=== PATIENT | male | born 1980 | race Caucasian/White ===

== ENCOUNTER 2018-07-08 07:32 | Inpatient (IN) ==
[2018-07-08] MEDS ORDERED: Ondansetron 4 MG/2 ML VIAL IVP ONE ×2 (08:08→16:01)
[2018-07-08] MEDS ORDERED: Ketorolac 15 MG/ML VIAL IVP ONE (08:08)
[2018-07-08] MEDS ORDERED: *HR* FentaNYL (PF) 100 MCG/2 ML VIAL IVP ONE (08:10)
[2018-07-08 08:30] LABS: Basophils % 0.4 %; Eosinophils % 0.4 %; Hematocrit 47.6 % (37.5-50.1); Hemoglobin 16.5 g/dL (12.9-16.9); Immature Granulocytes % 0.2 % (0-4); Lymphocytes # 2.2 K/mcL (0.6-4.6); Lymphocytes % 21.3 %; Mean Corpuscular HGB Conc 34.7 g/dL (31.6-35.5); Mean Corpuscular Hemoglobin 30.7 pg (28.0-33.3); Mean Corpuscular Volume 88.6 fL (83.0-100.0); Mean Platelet Volume 9.6 fL (9.4-12.4); Monocytes # 0.9 K/mcL (0.0-1.3); Monocytes % 8.3 %; Neutrophils # 7.1 K/mcL (1.6-8.9); Platelet Count 212 K/mcL (140-400); Red Blood Count 5.37 M/mcL (4.19-5.50); Red Cell Distribution Width 11.7 % (11.5-14.5); Segmented Neutrophils % 69.4 %
[2018-07-08 08:39] LABS: Bilirubin,Urine Negative (Negative); Blood,Urine Negative (Negative); Color,Urine Yellow (Yellow); Glucose,Urine (UA) Normal (Normal); Ketones,Urine Negative (Negative); Leukocyte Esterase,Urine Negative (Negative); Nitrite,Urine Negative (Negative); Protein,Urine Negative (Neg-Trace); Specific Gravity,Urine 1.014 (1.010-1.025); Urobilinogen,Urine Normal (Normal)
[2018-07-08 08:40] LABS: Clarity,Urine Clear (Clear)
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
[2018-07-08 08:48] LABS: Alanine Aminotransferase 15 Units/L (7-52); Albumin 4.2 g/dL (3.5-5.7); Albumin/Globulin Ratio 1.9 (1.1-2.2); Alkaline Phosphatase 76 Units/L (34-104); Aspartate Amino Transferase 17 Units/L (13-39); BUN/Creatinine Ratio 13 (6-26); Bilirubin,Direct 0.1 mg/dL (0.0-0.2); Bilirubin,Indirect 0.3 mg/dL (0.0-1.2); Bilirubin,Total 0.4 mg/dL (0.3-1.0); Blood Urea Nitrogen 10 mg/dL (6-20); Calcium 9.2 mg/dL (8.6-10.3); Carbon Dioxide 29 mEq/L (23-29); Chloride 107 mEq/L (98-107); Globulin 2.2 g/dL (2.4-3.5); Glucose 104 mg/dL (70-105); Lipase 18 Units/L (11-82); Osmolality,Calculated 285 (280-300); Potassium 3.9 mEq/L (3.5-5.1); Sodium 138 mEq/L (136-145); Total Protein 6.4 g/dL (6.4-8.9); eGFR For Non-African Americans > 60 (> 60)
[2018-07-08] MEDS ORDERED: Isovue-370 500 ML BOTTLE IVP ONE (09:12)
--- NOTE | 2018-07-08 10:57 | Electrocardiograph Report ---
[facility] Test Date: 2018-07-08 Pat Name: Leonel Vázquez Department: [id number] Room: Gender: M Heel Pricker: : 1980 Requested By: Alonzo Perez Order Number: [id number] Reading MD: Jose Recio Measurements Intervals Dow Rate: 83 P: 76 WA: 114 QRS: 81 QRSD: 94 T: 42 QT: 355 QTc: 418 Interpretive Statements Sinus rhythm Borderline short WA interval Electronically Signed On 07-08-2018 10:56:17 EST by Jose Recio
[2018-07-08] MEDS ORDERED: *HR* HYDROmorphone (PF) 1 MG/ML SYRINGE IVP ONE (11:11)
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
[2018-07-08] MEDS ORDERED: *HR* Promethazine 25 MG/ML VIAL IVP PRN ×2 (13:06→16:01)
[2018-07-08] MEDS ORDERED: Ondansetron 4 MG/2 ML VIAL IVP PRN (13:06)
[2018-07-08] MEDS ORDERED: *HR* Metoprolol 5 MG/5 ML VIAL IVP PRN ×3 (13:06→18:46)
[2018-07-08] MEDS ORDERED: Naloxone 0.4 MG/ML INJ IVP PRN ×2 (13:06→18:46)
[2018-07-08] MEDS ORDERED: *HR* OxyCODONE Oral Soln 5 MG/5 ML UD.LIQ PO PRN ×3 (13:06→18:46)
[2018-07-08] MEDS ORDERED: 0.9 % Sodium Chloride 1,000 ML IVC SCH (13:06)
[2018-07-08] MEDS: Acetaminophen IV 1,000 MG/100 ML INFUS..BTL IVPB SCH ×2 (13:54→23:03)
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
[2018-07-08] MEDS ORDERED: *HR* FentaNYL (PF) 100 MCG/2 ML VIAL ONE ×2 (15:31→16:40)
[2018-07-08] MEDS ORDERED: *HR* Propofol 200 MG/20 ML VIAL IVP ONE (15:31)
[2018-07-08] MEDS ORDERED: *HR* Midazolam HCl 2 MG/2 ML VIAL ONE (15:31)
[2018-07-08] MEDS ORDERED: Lidocaine -MPF 2% 2 ML VIAL ONE (15:34)
[2018-07-08] MEDS ORDERED: *HR* OxyCODONE Immed Rel 5 MG TABLET PO PRN (16:01)
[2018-07-08] MEDS ORDERED: Albuterol 2.5 MG/3 ML NEBULIZER IH ONE (16:01)
[2018-07-08] MEDS ORDERED: Clindamycin 900 MG/50 ML 900 MG/50 ML IV.SOLN IVPB ONE (16:26)
[2018-07-08] MEDS ORDERED: Ondansetron 4 MG/2 ML VIAL ONE (17:08)
[2018-07-08] MEDS ORDERED: Dexamethasone 4 MG/ML VIAL ONE (17:08)
[2018-07-08] MEDS ORDERED: SUGAMMADEX SODIUM 500 MG/5 ML VIAL IV ONE (17:18)
--- NOTE | 2018-07-08 17:28 | Operative Note ---
Date of procedure: 07/08/18 Pre-op diagnosis: Jejunum to jejunum intussusception Post-op diagnosis: same Procedure: Exploratory laparotomy, incidental appendectomy Complications: none immediate Anesthesia: GETA Surgeon: Esme Seymour Was there an development assistant present: No Power Hair Clipper Other: Rosie Landis Estimated blood loss (cc): 5 Specimen: appendix Condition: stable Disposition: PACU Procedure in Detail: Patient was brought into the operating suite and placed supine on the operating table. Sign in was performed and everyone was in agreement. Anesthesia was induced and patient was endotracheally intubated by anesthesia without incident. Of NG tube was placed by anesthesia. The abdomen was shaved. The abdomen was prepped and draped in usual sterile fashion. Timeout was performed again everyone was in agreement. An upper midline incision through the skin and the subcutaneous tissues made with a 15 blade. We dissected through the subcutaneous tissue to the anterior abdominal wall linea alba fascia with the Bovie. [place]'s are placed on either side of the fascia for retraction and the abdomen was entered with the Bovie. The fascial incision was elongated. Small bowel was eviscerated through the abdominal wall and the small bowel was run twice from the ligament of Treitz down to the terminal ileum. The small bowel intussusception had artery resolved. There was no palpable lesions within the small bowel. There was no mesenteric adenopathy that was palpable. There were no small bowel to intra-abdominal wall adhesions. There was no creeping fat indicative of Crohn's. A Karolina was placed on the appendix. A hemostat was used to dissect underneath the appendix through the mesoappendix. The appendix at the base of the cecum was transected with a linear JERSON 75 mm stapler blue load. The mesoappendix was taken down with the Bovie. A [id number] 3-0 silk stitch was used to control the appendiceal artery. All small bowel was returned to the abdominal cavity. The fascia was reapproximated with 2 separate #1 non-looped PDS running stitches meeting in the middle. Subcutaneous tissue is irrigated with sterile saline. Subcutaneous tissue was reapproximated with 3-0 Vicryl stitches and skin was closed with enriqueta. 4 x 4 gauze and Medipore tape were applied as a dressing. Patient tolerated the procedure well. All lap and instrument counts are correct at the end of the case. Patient was awoken by anesthesia and extubated in the OR without incident. He was taken to PACU in stable condition.
[2018-07-08] MEDS ORDERED: *HR* Heparin 5,000 UNIT/ML VIAL SQ SCH (18:00)
[2018-07-08] MEDS: *HR* HYDROmorphone (PF) 1 MG/ML SYRINGE IVP PRN ×2 (18:00→18:20)
--- NOTE | 2018-07-08 18:32 | Anesthesia Evaluation Post Op ---
Date of Encounter: 07/08/18 Time of Encounter: 18:20 - Vital Signs Vital Signs: Vital Signs/O2 Sat/Glucose, Most Current Temp Pulse Resp BP Pulse Ox 07/08/18 18:22 98.2 F 59 16 141/90 94 07/08/18 18:12 58 16 139/79 94 07/08/18 18:02 60 20 140/60 98 07/08/18 17:52 98.7 F 61 20 151/85 98 - Lungs Lungs: Clear Ascult./Percussion - Airway Airway: Non-obstructed - Cardiovascular Regular Rate - Mental Status Mental Status: Alert & Oriented, Answers Appropriately, Uncooperative - Pain Pain Scale: 2 Pain Scale used: HopkinsMoisés (Faces) (2) - Nausea Vomiting Nausea Vomiting: Not Present - Hydration Hydration: Tolerates oral liquids - Discharge PostOp Status: Transfer Patient to floor Anes Supervising Prov Stmt: Pt seen//evaluated, VSS and has met criteria for discharge to floor. - MD Gary
[2018-07-08] MEDS: Ondansetron 4 MG/2 ML VIAL IVP PRN (19:32)
[2018-07-08] MEDS: 0.9 % Sodium Chloride 1,000 ML IVC SCH (21:15)
[2018-07-09] MEDS: OXYCODONE Oral CONC 10 MG/0.5 ML ORAL.SYG PO PRN ×4 (00:17→12:17)
[2018-07-09] MEDS: 0.9 % Sodium Chloride 1,000 ML IVC SCH ×3 (04:30→14:02)
[2018-07-09] MEDS: Acetaminophen IV 1,000 MG/100 ML INFUS..BTL IVPB SCH ×3 (05:11→16:20)
[2018-07-09 06:42] LABS: Basophils % 0.1 %; Eosinophils % 0.1 %; Hematocrit 46.5 % (37.5-50.1); Hemoglobin 16.1 g/dL (12.9-16.9); Immature Granulocytes % 0.4 % (0-4); Lymphocytes # 1.8 K/mcL (0.6-4.6); Lymphocytes % 8.7 %; Mean Corpuscular HGB Conc 34.6 g/dL (31.6-35.5); Mean Corpuscular Volume 89.6 fL (83.0-100.0); Mean Platelet Volume 9.6 fL (9.4-12.4); Monocytes # 1.4 K/mcL (0.0-1.3); Monocytes % 6.7 %; Platelet Count 211 K/mcL (140-400); Red Blood Count 5.19 M/mcL (4.19-5.50); Red Cell Distribution Width 11.5 % (11.5-14.5)
[2018-07-09 06:50] LABS: Neutrophils # 17.1 K/mcL (1.6-8.9)
[2018-07-09 07:01] LABS: BUN/Creatinine Ratio 12 (6-26); Blood Urea Nitrogen 8 mg/dL (6-20); Calcium 8.7 mg/dL (8.6-10.3); Carbon Dioxide 24 mEq/L (23-29); Chloride 104 mEq/L (98-107); Glucose 98 mg/dL (70-105); Magnesium 1.5 mg/dL (1.6-2.6); Osmolality,Calculated 282 (280-300); Potassium 3.8 mEq/L (3.5-5.1); Sodium 137 mEq/L (136-145); eGFR For Non-African Americans > 60 (> 60)
[2018-07-09] MEDS: Pantoprazole 40 MG VIAL IVP SCH (08:32)
[2018-07-09] MEDS ORDERED: Pantoprazole 40 MG VIAL IVP SCH (09:00)
[2018-07-09] MEDS ORDERED: Venlafaxine XR (24 HR) 37.5 MG CAP.ER.24H PO SCH (10:45)
[2018-07-09] MEDS: Ondansetron 4 MG/2 ML VIAL IVP PRN (12:00)
[2018-07-09] MEDS ORDERED: ALPRAZolam 1 MG TABLET PO PRN (13:02)
[2018-07-09] MEDS ORDERED: *HR* OxyCODONE Oral Soln 5 MG/5 ML UD.LIQ PO PRN (13:04)
--- NOTE | 2018-07-09 13:07 | General Surgery Progress Note ---
Date of Encounter: 07/09/18 Time of Encounter: 13:05 - Assessment and Plan (1) Small bowel intussusception Current Visit: Yes Status: Acute resolved on its own (2) Anxiety Current Visit: Yes Status: Chronic continue home medication (3) Abdominal pain Current Visit: Yes Status: Chronic now is postoperative pain percocet, scheduled toradol lidoderm patch Qualifiers: Abdominal location: generalized Qualified Code(s): R10.84 - Generalized abdominal pain (4) Nausea and vomiting Current Visit: Yes Status: Resolved Qualifiers: Vomiting type: unspecified Vomiting Intractability: non-intractable Qualified Code(s): R11.2 - Nausea with vomiting, unspecified (5) Leukocytosis Current Visit: Yes Status: Acute likely secondary to surgery Qualifiers: Leukocytosis type: unspecified Qualified Code(s): D72.829 - Elevated white blood cell count, unspecified Subjective Patient reports: no new complaints, still having pain, tolerating liquids well, flatus, no bowel movement, afebrile Objective Vital Signs - Last 8 Hours Temp Pulse Resp BP Pulse Ox 07/09/18 11:00 98.2 F 89 16 132/78 95 07/09/18 07:20 98.2 F 62 16 126/77 93 Intake and Output 07/08/18 07/09/18 07/09/18 23:59 07:59 15:59 Intake Total 0 / 0 1620 / 1620 2220 / 2220 Output Total 5 / 5 275 / 275 0 / 0 Balance -5 / -5 1345 / 1345 2220 / 2220 Intake: IV Fluids 1200 / 1200 2100 / 2100 0.9 % Sodium Chloride 1,000 ML 1000 / 1000 1000 / 1000 @ 120 mls/hr IVC .Q8H20M [facility] Rx #:[id number] Ofirmev 1,000 mg/100 ml 1,000 200 / 200 100 / 100 mg In 100 ml @ 400 mls/hr IVPB Q6HR [facility] Rx#:[id number] Oral 0 / 0 420 / 420 120 / 120 Output: Urine 275 / 275 0 / 0 Estimated Blood Loss 5 / 5 Other: Meal DINNER NPO CLEARS Percent of Meal Consumed 0% Weight 72.4 kg Patient Weight 07/09/18 23:59 Weight 72.4 kg - General physical appearance well developed, well nourished, moderate distress, moderate pain - Eyes normal ocular movement - ENT normal mucosa, normocephalic - Neck Neck exam: trachea midline - Respiratory normal expansion, clear to auscultation - Cardiovascular Cardiovascular exam: Present: RRR - Abdomen Abdomen: Present: bowel sounds present, soft, tender (very histrionic exaggeration to palpation). Absent: guarding, rebound - Incision Incision: Present: clean and dry, intact - Integumentary no rash, no growths - Neurologic CN 2-12 grossly intact - Musculoskeletal normal posture - Psychiatric oriented to time, oriented to person, oriented to place, speech is normal, memory intact - Labs 07/09/18 06:28 07/09/18 06:28 Short CBC 07/09/18 Range/Units 06:28 WBC 20.3 H D (4.3-11.1) K/mcL Hgb 16.1 (12.9-16.9) g/dL Hct 46.5 (37.5-50.1) % Plt Count 211 (140-400) K/mcL Neutrophils # 17.1 H (1.6-8.9) K/mcL BMP 07/09/18 Range/Units 06:28 Sodium 137 (136-145) mEq/L Potassium 3.8 (3.5-5.1) mEq/L Chloride 104 (98-107) mEq/L Carbon Dioxide 24 (23-29) mEq/L BUN 8 (6-20) mg/dL Creatinine 0.69 L (0.70-1.30) mg/dL Glucose 98 (70-105) mg/dL Calcium 8.7 (8.6-10.3) mg/dL Vital Signs Temp Pulse Resp BP Pulse Ox 07/09/18 11:00 98.2 F 89 16 132/78 95 07/09/18 07:20 98.2 F 62 16 126/77 93 07/09/18 03:25 98.4 F 79 14 123/71 97 07/08/18 22:45 98.0 F 75 17 121/71 94 07/08/18 21:45 98.1 F 89 17 138/91 94 07/08/18 20:45 98.1 F 75 16 126/85 94 07/08/18 19:45 98.0 F 82 16 149/89 94 07/08/18 19:15 98.1 F 77 16 140/70 97 07/08/18 18:53 98.9 F 84 16 106/72 97 07/08/18 18:45 98.2 F 85 20 160/84 98 07/08/18 18:32 98.1 F 60 16 94 07/08/18 18:22 98.2 F 59 16 141/90 94 07/08/18 18:12 58 16 139/79 94 07/08/18 18:02 60 20 140/60 98 07/08/18 17:52 98.7 F 61 20 151/85 98 Intake and Output 07/08/18 07/09/18 07/09/18 23:59 07:59 15:59 Intake Total 0 / 0 1620 / 1620 2220 / 2220 Output Total 5 / 5 275 / 275 0 / 0 Balance -5 / -5 1345 / 1345 2220 / 2220 Intake: IV Fluids 1200 / 1200 2100 / 2100 0.9 % Sodium Chloride 1,000 ML 1000 / 1000 1000 / 1000 @ 120 mls/hr IVC .Q8H20M [facility] Rx #:[id number] Ofirmev 1,000 mg/100 ml 1,000 200 / 200 100 / 100 mg In 100 ml @ 400 mls/hr IVPB Q6HR [facility] Rx#:[id number] Oral 0 / 0 420 / 420 120 / 120 Output: Urine 275 / 275 0 / 0 Estimated Blood Loss 5 / 5 Other: Meal DINNER NPO CLEARS Percent of Meal Consumed 0% Weight 72.4 kg Patient Weight 07/09/18 23:59 Weight 72.4 kg Consult Discharge Plan - Plan Referrals: NONE,PCP [Primary Care Provider] -
[2018-07-09] MEDS: *HR* OxyCODONE/APAP 5/325 TABLET PO PRN ×2 (16:18→20:30)
[2018-07-09] MEDS: Ketorolac 30 MG/ML VIAL IVP SCH ×2 (17:54→23:58)
[2018-07-10] MEDS: Ondansetron 4 MG/2 ML VIAL IVP PRN ×2 (01:33→11:18)
[2018-07-10] MEDS: *HR* Promethazine 25 MG/ML VIAL IVP PRN ×2 (02:12→16:02)
[2018-07-10 04:53] LABS: Basophils # 0.1 K/mcL (0.0-0.2); Basophils % 0.3 %; Eosinophils % 0.1 %; Hematocrit 45.4 % (37.5-50.1); Hemoglobin 15.6 g/dL (12.9-16.9); Immature Granulocytes % 0.5 % (0-4); Lymphocytes # 1.4 K/mcL (0.6-4.6); Lymphocytes % 7.4 %; Mean Corpuscular HGB Conc 34.4 g/dL (31.6-35.5); Mean Corpuscular Hemoglobin 30.9 pg (28.0-33.3); Mean Corpuscular Volume 89.9 fL (83.0-100.0); Mean Platelet Volume 9.8 fL (9.4-12.4); Monocytes # 1.2 K/mcL (0.0-1.3); Monocytes % 6.4 %; Neutrophils # 15.5 K/mcL (1.6-8.9); Platelet Count 193 K/mcL (140-400); Red Blood Count 5.05 M/mcL (4.19-5.50); Red Cell Distribution Width 11.6 % (11.5-14.5); Segmented Neutrophils % 85.3 %
[2018-07-10] MEDS: Ketorolac 30 MG/ML VIAL IVP SCH ×3 (05:26→17:02)
[2018-07-10] MEDS: 0.9 % Sodium Chloride 1,000 ML IVC SCH (05:26)
[2018-07-10] MEDS: Pantoprazole 40 MG VIAL IVP SCH (08:20)
[2018-07-10] MEDS: *HR* OxyCODONE/APAP 5/325 TABLET PO PRN ×3 (08:28→20:22)
--- NOTE | 2018-07-10 13:55 | General Surgery Progress Note ---
Date of Encounter: 07/10/18 Time of Encounter: 13:53 - Assessment and Plan (1) Small bowel intussusception Current Visit: Yes Status: Acute resolved on its own tolerating diet, advance to regular decrease IVF OOB to chair ok to shower (2) Anxiety Current Visit: Yes Status: Chronic continue home medication (3) Abdominal pain Current Visit: Yes Status: Chronic postoperative pain - appropriate, patient is very histrionic and exaggerative percocet, scheduled toradol lidoderm patch Qualifiers: Abdominal location: generalized Qualified Code(s): R10.84 - Generalized abdominal pain (4) Leukocytosis Current Visit: Yes Status: Acute likely secondary to surgery is decreasing, trend Qualifiers: Leukocytosis type: unspecified Qualified Code(s): D72.829 - Elevated white blood cell count, unspecified Subjective Patient reports: no new complaints, still having pain, pain is less, tolerating liquids well, flatus, bowel movement, afebrile Objective Vital Signs - Last 8 Hours Temp Pulse Resp BP Pulse Ox 07/10/18 10:40 98.1 F 89 16 146/73 94 07/10/18 06:56 98.1 F 86 16 133/73 95 Intake and Output 07/09/18 07/10/18 07/10/18 23:59 07:59 15:59 Intake Total 480 / 480 1000 / 1000 120 / 120 Output Total 625 / 625 0 / 0 Balance -145 / -145 1000 / 1000 120 / 120 Intake: IV Fluids 1000 / 1000 0.9 % Sodium Chloride 1,000 ML 1000 / 1000 @ 50 mls/hr IVC .Q20H [facility] Rx#: [id number] Oral 480 / 480 0 / 0 120 / 120 Output: Urine 625 / 625 0 / 0 Other: # Voids 2 Weight 72 kg Patient Weight 07/10/18 23:59 Weight 72 kg - General physical appearance well developed, well nourished, no distress, no pain - Eyes PERRL, normal ocular movement - ENT normal mucosa, normocephalic - Neck Neck exam: trachea midline - Respiratory normal expansion, clear to auscultation - Cardiovascular Cardiovascular exam: Present: RRR - Abdomen Abdomen: Present: bowel sounds present, soft, tender (appropriate post op tenderness). Absent: guarding, rebound - Incision Incision: Present: clean and dry, intact - Integumentary no rash, no growths - Neurologic CN 2-12 grossly intact - Musculoskeletal normal posture - Psychiatric oriented to time, oriented to person, oriented to place, speech is normal, memory intact - Labs 07/10/18 04:13 07/09/18 06:28 Consult Discharge Plan - Plan Referrals: NONE,PCP [Primary Care Provider] -
--- NOTE | 2018-07-10 13:58 | Discharge Summary ---
<DawnLionelEsme L - Last Filed: 07/10/18 13:56> Orders not resulted at time of discharge: Pending orders 07/08/18 18:00 Surgical Pathology [PTH] Routine Date of Encounter: 07/11/18 Time of Encounter: 12:00 - Discharge Diagnosis (1) Small bowel intussusception Priority: Primary Status: Acute (2) Anxiety Priority: Secondary Status: Chronic (3) Abdominal pain Priority: Secondary Status: Chronic Qualifiers: Abdominal location: generalized Qualified Code(s): R10.84 - Generalized abdominal pain (4) Leukocytosis Priority: Secondary Status: Acute Qualifiers: Leukocytosis type: unspecified Qualified Code(s): D72.829 - Elevated white blood cell count, unspecified General Surgery Exam Initial Vital Signs Temp Pulse Resp BP Pulse Ox 98.0 F 94 15 158/100 98 07/08/18 07:33 07/08/18 07:33 07/08/18 07:33 07/08/18 07:33 07/08/18 07:33 - General physical appearance well developed, well nourished, no distress - Eyes PERRL, normal ocular movement - ENT normal mucosa, normocephalic - Neck trachea midline - Respiratory normal expansion, clear to auscultation - Cardiovascular Cardiovascular exam: Present: RRR - Abdomen Abdomen general surgery: Present: bowel sounds present, soft, tender (appropriate post op tenderness). Absent: guarding, rebound - Incision Incision: Present: clean and dry, intact - Integumentary Integumentary general surgery: Present: warm and dry - Neurologic Present: CN 2-12 grossly intact - Musculoskeletal Present: normal gait - Psychiatric Psychiatric general surgery: Present: A&Ox3, other (anxious, histrionic) - Hospital Course Hospital course: Mr. Vázquez is a 38 year old male with chronic intermittent abdominal pain. He presented with acute abdominal pain and CT showed small bowel jejunal intussusception. He was taking to the OR for exploratory laparotomy. No patho logy found. Postoperative pain control was an issue. He was started on diet and advanced as he tolerated. Pain was controlled with prn medication and lidoderm patch. He was discharged home in stable condition. - Time Spent with Patient Total time spent providing and/or coordinating discharge services: - Discharge Medications Home Medications: ALPRAZolam [Xanax 1 MG Tablet] 1 mg PO BID PRN 07/14/17 [History] Duloxetine HCl [Cymbalta] 60 mg PO DAILY 07/14/17 [History] Clobetasol Propionate 0.05% [Temovate] 1 appl TP BID 07/08/18 [History] Dicyclomine Hcl [Bentyl] 20 mg PO QID PRN 07/08/18 [History] Docusate [Colace] 100 mg PO BID #30 capsule 07/10/18 [Rx] Lidocaine Patch [Lidoderm 5% patch] 1 each TP DAILY #14 adh..patch 07/10/18 [Rx] OxyCODONE/APAP 5/325 [Percocet 5/325 MG] 1 each PO Q4HR PRN 6 Days #22 tablet 07/10/18 [Rx] Allergies/Adverse Reactions: Allergy/AdvReac Type Severity Reaction Status Date / Time Penicillins [PCN] Allergy See Verified 07/14/17 08:17 Comments aspirin [ASA] AdvReac Nausea Verified 07/14/17 08:17 Date of admission: 07/08/18 11:19 Primary care physician: PCP NONE Discharging clinician: Esme Seymour Labs on day of discharge: Labs from last 24 hours 07/10/18 04:13 WBC 18.2 H RBC 5.05 Hgb 15.6 Hct 45.4 MCV 89.9 MCH 30.9 MCHC 34.4 RDW 11.6 Plt Count 193 MPV 9.8 Immature Gran % 0.5 Seg Neutrophils % 85.3 Lymphocytes % 7.4 Monocytes % 6.4 Eosinophils % 0.1 Basophils % 0.3 Neutrophils # 15.5 H Lymphocytes # 1.4 Monocytes # 1.2 Eosinophils # 0.0 Basophils # 0.1 - Impressions ITS Impressions Abdomen/Pelvis CT 07/08/18 09:12 IMPRESSION: No CT evidence of acute intra-abdominal process. Jejunal-jejunal intussusception in the left abdomen spanning a length of approximately 7.5 cm without an obvious intraluminal lead point lesion. This may be transient. However, given the length, recommend a small-bowel follow-through to exclude underlying lesion. Moderate wall thickening of the gastric antrum may represent gastritis. Stable nonobstructing 6 mm stone left kidney. D/ / Vic Coles / Vic Coles Interpreting Provider: Vic Coles - Patient Status Disposition: Home, Self-Care Condition: Good Overall status at discharge: patient is progressing back to baseline - Discharge Instructions Follow Up With: NONE,PCP [Primary Care Provider] - Arin Patricio, HOSPICE PATIENT CARE SECRETARY [Advanced Practice Nurse] - 07/22/18 9:30 am (surgical followup) Additional Instructions: no driving until off narcotics for 24 hours and can react safely ok to shower, no tub baths or swimming pools until 48 hours after enriqueta removed no lifting anything over 25 lbs for 6 weeks after surgery ok to ride in car/vehicle with seat belt on ok to climb steps regular diet - Diet and Activity Activity: increase activity as tolerated Diet: regular diet <Rosie Mccullough - Last Filed: 07/11/18 10:44> Orders not resulted at time of discharge: Pending orders 07/08/18 18:00 Surgical Pathology [PTH] Routine Date of Encounter: 07/11/18 Time of Encounter: 10:40 - Discharge Diagnosis (1) Small bowel intussusception Status: Resolved (2) Leukocytosis Status: Resolved Qualifiers: Leukocytosis type: unspecified Qualified Code(s): D72.829 - Elevated white blood cell count, unspecified (3) Anxiety Status: Chronic (4) Abdominal pain Status: Resolved Qualifiers: Abdominal location: generalized Qualified Code(s): R10.84 - Generalized abdominal pain General Surgery Exam Initial Vital Signs Temp Pulse Resp BP Pulse Ox 98.0 F 94 15 158/100 98 07/08/18 07:33 07/08/18 07:33 07/08/18 07:33 07/08/18 07:33 07/08/18 07:33 - General physical appearance well developed, well nourished, no distress - Eyes normal ocular movement - ENT normal mucosa, atraumatic, normocephalic - Neck trachea midline - Respiratory normal respiratory effort, clear to auscultation - Cardiovascular Cardiovascular exam: Present: RRR - Abdomen Abdomen general surgery: Present: bowel sounds present, soft, tender - Incision Incision: Present: clean and dry, intact - Integumentary Integumentary general surgery: Present: warm and dry - Neurologic Present: CN 2-12 grossly intact - Psychiatric Psychiatric general surgery: Present: A&Ox3 - Hospital Course Hospital course: Mr. Vázquez is a 38 year old male - Time Spent with Patient Total time spent providing and/or coordinating discharge services: Less than 30 minutes Date of admission: 07/10/18 22:31 Primary care physician: PCP NONE Anticipated date of discharge: 07/11/18 Labs on day of discharge: Labs from last 24 hours 07/11/18 04:00 WBC 9.6 RBC 5.00 Hgb 15.4 Hct 44.5 MCV 89.0 MCH 30.8 MCHC 34.6 RDW 11.3 L Plt Count 201 MPV 9.9 Immature Gran % 0.2 Seg Neutrophils % 69.9 Lymphocytes % 20.0 Monocytes % 9.2 Eosinophils % 0.4 Basophils % 0.3 Neutrophils # 6.7 Lymphocytes # 1.9 Monocytes # 0.9 Eosinophils # 0.0 Basophils # 0.0 - Impressions ITS Impressions Abdomen/Pelvis CT 07/08/18 09:12 IMPRESSION: No CT evidence of acute intra-abdominal process. Jejunal-jejunal intussusception in the left abdomen spanning a length of approximately 7.5 cm without an obvious intraluminal lead point lesion. This may be transient. However, given the length, recommend a small-bowel follow-through to exclude underlying lesion. Moderate wall thickening of the gastric antrum may represent gastritis. Stable nonobstructing 6 mm stone left kidney. D/ / Vic Coles / Vic Coles Interpreting Provider: Vic Coles - Patient Status Functional capacity at discharge: independent ambulation Overall status at discharge: patient is progressing back to baseline - Attending Attestation For this encounter, I have reviewed the RECREATIONAL DIRECTOR or PA documentation, treatment plan, and medical decision making; and I have had face to face time with this patient.
[2018-07-11] MEDS: Ketorolac 30 MG/ML VIAL IVP SCH ×3 (00:32→11:46)
[2018-07-11 04:45] LABS: Basophils % 0.3 %; Eosinophils % 0.4 %; Hematocrit 44.5 % (37.5-50.1); Hemoglobin 15.4 g/dL (12.9-16.9); Immature Granulocytes % 0.2 % (0-4); Lymphocytes # 1.9 K/mcL (0.6-4.6); Mean Corpuscular HGB Conc 34.6 g/dL (31.6-35.5); Mean Corpuscular Hemoglobin 30.8 pg (28.0-33.3); Mean Platelet Volume 9.9 fL (9.4-12.4); Monocytes # 0.9 K/mcL (0.0-1.3); Monocytes % 9.2 %; Neutrophils # 6.7 K/mcL (1.6-8.9); Platelet Count 201 K/mcL (140-400); Red Cell Distribution Width 11.3 % (11.5-14.5); Segmented Neutrophils % 69.9 %
[2018-07-11] MEDS: *HR* OxyCODONE/APAP 5/325 TABLET PO PRN (09:13)
[2018-07-11 10:55] VITALS: BP 159/80
== END 2018-07-11 11:56 | disposition home or self-care (01) | DRG 234 ==
LOC: EMEROOARM 07:32 → 3ANU 07:32
PROVIDERS: ADMIT Surgery; ATTEND Surgery

== ENCOUNTER 2021-11-14 20:03 | Inpatient (IN) ==
[2021-11-14] MEDS ORDERED: Haloperidol Lactate 5 MG/ML VIAL IM ONE ×2 (20:10→20:15)
[2021-11-14] MEDS ORDERED: *HR* LORazepam 2 MG/ML VIAL IM ONE (20:15)
[2021-11-14] MEDS: *HR* LORazepam 2 MG/ML VIAL IM ONE ×2 (20:16→20:36)
[2021-11-14 21:02] LABS: Basophils % 0.2 %; Hematocrit 31.5 % (37.5-50.1); Hemoglobin 9.7 g/dL (12.9-16.9); Immature Granulocytes % 0.5 % (0-4); Lymphocytes # 1.1 K/mcL (0.6-4.6); Lymphocytes % 7.1 %; Mean Corpuscular HGB Conc 30.8 g/dL (31.6-35.5); Mean Corpuscular Hemoglobin 22.6 pg (28.0-33.3); Mean Corpuscular Volume 73.4 fL (83.0-100.0); Mean Platelet Volume 9.2 fL (9.4-12.4); Monocytes # 1.1 K/mcL (0.0-1.3); Monocytes % 7.2 %; Neutrophils # 12.5 K/mcL (1.6-8.9); Platelet Count 373 K/mcL (140-400); Red Blood Count 4.29 M/mcL (4.19-5.50); Red Cell Distribution Width 19.7 % (11.5-14.5); White Blood Count 14.7 K/mcL (4.3-11.1)
[2021-11-14 21:22] LABS: Acetaminophen < 10 mcg/mL (10-20); BUN/Creatinine Ratio 18 (6-26); Blood Urea Nitrogen 15 mg/dL (6-20); Calcium 9.2 mg/dL (8.6-10.3); Carbon Dioxide 25 mEq/L (23-29); Chloride 102 mEq/L (98-107); Ethanol < 10 mg/dL (Less than 10); Glucose 183 mg/dL (70-105); Osmolality,Calculated 292 (280-300); Potassium 3.1 mEq/L (3.5-5.1); Salicylate < 2.5 mg/dL (15.0-30.0); Sodium 138 mEq/L (136-145); eGFR For African Americans > 60 (> 60); eGFR For Non-African Americans > 60 (> 60)
[2021-11-14 21:24] LABS: Bacteria,Urine Few per hpf (None-Few); Bilirubin,Urine Negative (Negative); Blood,Urine Negative (Negative); Clarity,Urine Clear (Clear); Color,Urine Yellow (Yellow); Glucose,Urine (UA) 200 mg/dL (Normal); Hyaline Casts,Urine Few per lpf (None Seen); Ketones,Urine Negative (Negative); Leukocyte Esterase,Urine Negative (Negative); Mucus,Urine Few per lpf (None-Few); Nitrite,Urine Negative (Negative); PH,Urine 6.5 pH Units (5.0-8.0); Protein,Urine 30 mg/dL (Neg-Trace); RBC,Urine 0-3 per hpf (0-3); Specific Gravity,Urine 1.026 (1.010-1.025); Urobilinogen,Urine Normal (Normal); WBC,Urine 0-3 per hpf (0-3)
[2021-11-14 21:35] LABS: Thyroid Stimulating Hormone 2.254 mcIU/mL (0.340-5.600)
[2021-11-14 21:39] LABS: Amphetamine Screen,Urine Negative ng/mL (Cutoff=1000); Barbiturate Screen,Urine Negative ng/mL (Cutoff=200); Benzodiazepines Screen,Urine Negative ng/mL (Cutoff=200); Cannabinoid Screen,Urine Positive ng/mL (Cutoff = 50); Cocaine Screen,Urine Negative ng/mL (Cutoff= 300); Opiate Screen,Urine Negative ng/mL (Cutoff=300); Phencyclidine Screen,Urine Negative ng/mL (Cutoff=25)
[2021-11-15] MEDS ORDERED: *HR* LORazepam 2 MG/ML VIAL ONE (00:54)
[2021-11-15] MEDS ORDERED: Ziprasidone 20 MG/VIAL VIAL IM ONE (00:54)
[2021-11-15] MEDS ORDERED: Water for inj. (sterile) 10 ML ONE (00:55)
[2021-11-15] MEDS ORDERED: *HR* LORazepam 2 MG/ML VIAL IM ONE (00:57)
[2021-11-15] MEDS ORDERED: Ziprasidone 10 MG, Closed System Device IM Kit 1 EACH in Water for inj. (sterile) 0.5 ML IM ONE (00:57)
[2021-11-15 02:09] LABS: Influenza A PCR Negative (Negative); Influenza B PCR Negative (Negative); Resp. Syncytial Virus PCR Negative (Negative)
[2021-11-15 02:11] LABS: SARS-CoV-2 by PCR (In House) Negative (Negative)
[2021-11-15] MEDS ORDERED: *HR* LORazepam 2 MG/ML VIAL IM PRN (02:30)
[2021-11-15] MEDS ORDERED: *HR* LORazepam 1 MG TABLET PO PRN (02:30)
[2021-11-15] MEDS ORDERED: haloperidoL 5 MG TABLET PO PRN (02:30)
[2021-11-15] MEDS ORDERED: hydrOXYzine pamoate 25 MG CAPSULE PO PRN (02:30)
[2021-11-15] MEDS ORDERED: QUEtiapine Fumarate 25 MG TABLET PO PRN (02:30)
[2021-11-15] MEDS ORDERED: Haloperidol Lactate 5 MG/ML VIAL IM PRN (02:30)
[2021-11-15] MEDS: Acetaminophen 325 MG TABLET PO PRN (19:04)
[2021-11-15] MEDS: Nicotine 21 MG PATCH.TD24 TD SCH (19:04)
[2021-11-15] MEDS ORDERED: OLANZapine 5 MG TAB.RAPDIS PO SCH (21:00)
[2021-11-15] MEDS ORDERED: OLANZapine 10 MG TAB.RAPDIS PO SCH (21:00)
[2021-11-15] MEDS ORDERED: Venlafaxine XR (24 HR) 75 MG CAP.ER.24H PO SCH (21:00)
[2021-11-15] MEDS: Ibuprofen 400 MG TABLET PO PRN (21:57)
[2021-11-15] MEDS: cephALEXin 500 MG CAPSULE PO SCH (21:58)
[2021-11-16] MEDS: Acetaminophen 325 MG TABLET PO PRN ×2 (04:30→10:17)
[2021-11-16] MEDS: Nicotine 21 MG PATCH.TD24 TD SCH (07:40)
[2021-11-16] MEDS: cephALEXin 500 MG CAPSULE PO SCH ×2 (07:40→12:24)
[2021-11-16] MEDS: Ibuprofen 400 MG TABLET PO PRN (07:43)
[2021-11-16 10:19] VITALS: BP 144/84; PULSE 84; TEMP 97.6; O2SAT 98
== END 2021-11-16 13:50 | disposition home or self-care (01) | DRG 751 ==
LOC: EMEROOARM 20:03 → 1ANU 11-15 02:19
PROVIDERS: ADMIT Psychiatry & Neurology Neurology; ATTEND Psychiatry & Neurology Neurology